=== PATIENT | female | born 1970 | race Caucasian/White ===

== ENCOUNTER → 2016-12-15 | Day surgery (SDC) | payer OTHER ==
[~2016-12-15] MED LIST: CLONAZEPAM1 M2 PO; CYCLOBENZAPRINE10 M1 PO; GLUCOPHAGE500 M3 PO; LASIX20 M1 PO; MIRENA; MOBIC15 MG PO; NORCO 5-325 TA1 EACH PO; POTASSIUM CHLO10 ME2 PO; PROMETHAZINE HC25 M3 PO; TRIAMTERENE-HC1 EAC2 PO; ZYLET EYE DROPS5 ML OP
== END ==
LOC: U 10:20 → SRG 10:55 → EDSTATUS 11:00 → U 11:00
PROC: 3E0S3GC Introduction of Other Therapeutic Substance into Epidural Space, Percutaneous Approach (ICD-10-PCS; principal; 2016-12-15)
DX: G97.1 Other reaction to spinal and lumbar puncture (principal); Z88.8 Allergy status to other drugs, medicaments and biological substances